=== PATIENT | female | born 1975 | race African-American/Black ===

== ENCOUNTER 2022-03-07 13:46 | Emergency (ER) | payer MEDICAID ==
[~2022-03-07] VITALS: Ht 160 cm; Wt 70.8 kg
[2022-03-07 13:50] VITALS: BP 139/81
--- NOTE | 2022-03-07 14:09 | NUR ---
47/F PRESENTS TO ED WITH C/O LOWER ABDOMINAL PAIN, DYSURIA AND HEMATURIA SINCE THIS MORNING. DENIES FEVERS, CHILLS, REPORTS NO HX OF UTI, PATIENT DENIES FLANK PAIN, N/V/D, CP, SOB. DENIES TAKING MEDS FOR PAIN PRIOR TO ARRIVAL TO ED.
[2022-03-07] MEDS ORDERED: KETOROLAC 30 MG/ML VIAL IVP ONE (14:10)
--- NOTE | 2022-03-07 14:15 | NUR ---
Blood sample collected, handed to CPT Kathryn at ER bedside
--- NOTE | 2022-03-07 14:19 | NUR ---
Lab at bedside
[2022-03-07 14:23] LABS: BASOPHILS % (AUTO) 0.5 % (0.0-2.0); EOSINOPHILS # (AUTO) 0.1 K/uL (0-0.4); EOSINOPHILS % (AUTO) 1.5 % (0.0-4.0); HEMATOCRIT 37.8 % (36-48); HEMOGLOBIN 12.8 g/dL (12.0-16.0); LYMPHOCYTES # (AUTO) 2.9 K/uL (2.5-16.5); LYMPHOCYTES % (AUTO) 34.5 % (20.5-51.1); MEAN CORPUSCULAR HEMOGLOBIN 30 pg (27-31); MEAN CORPUSCULAR HGB CONC 34 g/dL (33-37); MEAN CORPUSCULAR VOLUME 88.7 fL (80-94); MONOCYTES # (AUTO) 0.6 K/uL (0.8-1.0); MONOCYTES % (AUTO) 6.7 % (1.7-9.3); NEUTROPHILS # (AUTO) 4.7 K/uL (1.8-7.7); NEUTROPHILS % (AUTO) 56.8 % (42.2-75.2); PLATELET COUNT (AUTO) 333 K/uL (140-450); RED BLOOD CELL COUNT(AUTO) 4.26 MIL/uL (4.20-5.40); RED CELL DISTRIBUTION WIDTH 12.6 % (11.6-13.7); WHITE BLOOD COUNT (AUTO) 8.4 K/uL (4.8-10.8)
[2022-03-07 14:24] LABS: APPEARANCE,URINE SL CLOUDY (CLEAR); BILIRUBIN,URINE NEGATIVE (NEGATIVE); BLOOD, URINE 3+ (NEGATIVE); COLOR,URINE AMBER (YELLOW); LEUKOCYTE ESTERASE ,URINE 2+ (NEGATIVE); NITRITE, URINE NEGATIVE (NEGATIVE); UGLUCOSE NEGATIVE (NEGATIVE)
--- NOTE | 2022-03-07 14:42 | NUR ---
Pt to CT via WC.
[2022-03-07 14:43] LABS: ALBUMIN 4.3 g/dL (3.4-5.0); ANION GAP 10.4 (8-16); CARBON DIOXIDE 27.1 mmol/L (21-32); CREATININE 0.9 mg/dL (0.6-1.3); POTASSIUM 3.5 mmol/L (3.5-5.1)
[2022-03-07 14:45] LABS: OTHER CASTS, URINE None Seen /LPF (None Seen); RBC,URINE 11-20 (MOD) /HPF (0-5)
--- NOTE | 2022-03-07 14:51 | NUR ---
Patient returned from CT via WC.
--- NOTE | 2022-03-07 14:55 | NUR ---
Patient states + relief to pain; 4/10 at this time. [place] provided. All needs met.
[2022-03-07] MEDS ORDERED: IBUP-2213 PO (15:39)
[2022-03-07] MEDS ORDERED: CEPH-588 PO (15:39)
[2022-03-07] MEDS ORDERED: PYR100 PO (15:39)
--- NOTE | 2022-03-07 15:52 | NUR ---
Patient discharged with v/s stable. Written and verbal after care instructions given and explained for Urinary Tract Infection (Adult). Patient alert, oriented and verbalized understanding of instructions. Ambulatory with steady gait. All questions addressed prior to discharge. ID band removed. Patient advised to follow up with PMD. Rx of Pyridium, Keflex, Ibuprofen given. Patient educated on indication of medication including possible reaction and side effects. Opportunity to ask questions provided and answered. Copies of CT, lab work, urinalysis given to patient.
== END 2022-03-07 15:52 | disposition home or self-care (01) ==
LOC: MED 13:46
DX: N39.0 Urinary tract infection, site not specified (principal); R03.0 Elevated blood-pressure reading, without diagnosis of hypertension; Z90.49 Acquired absence of other specified parts of digestive tract; Z98.51 Tubal ligation status; Z79.899 Other long term (current) drug therapy; Z79.1 Long term (current) use of non-steroidal anti-inflammatories (NSAID); Z79.2 Long term (current) use of antibiotics
CPT/HCPCS: 36415; 74176; 80053; 81001; 81025; 83690; 85025; 87086; 96374; 99285; J1885